=== PATIENT | female | born 1995 | race Caucasian/White ===

== ENCOUNTER 2017-01-02 06:59 | Emergency (ER) | payer OTHER ==
[2017-01-02 07:04] VITALS: RESP 18; TEMP 97.9
--- NOTE | 2017-01-02 07:12 | EDPHY ---
H & P HPI/ROS: CHIEF COMPLAINT: Right shoulder dislocation. HISTORY OF PRESENT ILLNESS: The patient is a 21-year-old female with a history of multiple right shoulder dislocations who presents with right shoulder dislocation. This happened this morning when she jumped upwards to reach a volleyball. Immediate onset of severe right shoulder pain and inability to move arm. She reports this feels the same as her other dislocations. She denies numbness or weakness in her arm. She has no other complaints at this time. REVIEW OF SYSTEMS: A complete 10-point review of systems was performed and is negative except for those items mentioned in the HPI. Past Medical/Surgical History: right shoulder dislocation Social History: [employer] Student. Smoking Status: Never smoked Physical Exam: General Appearance: Alert,appears in pain Eyes: Pupils equal and round, no conjunctival pallor ENT, Mouth: Mucous membranes moist Neck: Normal inspection Respiratory: Lungs are clear to auscultation Cardiovascular: Regular rate and rhythm Gastrointestinal: Abdomen is soft and non-tender Neurological: A&O, nonfocal exam Skin: Warm and dry Vascular: 2+ radial pulse Extremities: right shoulder held in abduction and internal rotation, AC stepoff , anterior shoulder fullness Psychiatric: Mood and affect normal Constitutional: Initial Vital Signs Temperature (C) 36.6 C 01/02/17 07:02 Heart Rate 91 01/02/17 07:02 Respiratory Rate 18 01/02/17 07:02 Blood Pressure 113/85 H 01/02/17 07:02 O2 Sat (%) 97 01/02/17 07:02 O2 Delivery Mode Room Air Allergies/Adverse Reactions: No Known Allergies Allergy (Verified 01/02/17 07:01) Home Medications: Medication Instructions Recorded Nexplanon 01/02/17 Medical Decision Making - Diagnostics Imaging: Xray independently reviewed by me: right shoulder dislocation Repeat Xray: successful reduction ED Course/Re-evaluation: 21-year-old female with multiple right shoulder dislocations presents with right shoulder pain. A shoulder x-ray was ordered and taken when the patient entered the emergency department. I viewed this on the portable screen. It showed definite dislocation. This has happened to this patient multiple times before to her right shoulder. She has severe pain with small movements of her arm. She is neurovascularly intact distally. At her request, I initially tried scapular manipulation but she was unable to tolerate this procedure. I offered sedation but she declined as she has class later today. We placed her prone and dangled her right arm with weights to the wrist. 0743: Shoulder still not reducible. An IV has been established. 100mcg IV Fentanyl administered for pain. 0755: Procedure: Reduction of dislocated shoulder. Time-out completed immediately before the procedure. Neurovascular exam intact pre-procedure. Given 100mcg IV Fentanyl for pain. The right shoulder was reduced using traction-countertraction. Reassessed post-procedure. Neurovascular status intact- normal median, radial, ulnar and axillary nerve motor and sensory exam. Exam indicated reduction. Confirmed reduction on X-ray. Arm sling applied. The procedure was performed by myself. She tolerated the procedure well. Post-procedure--pt is alert and comfortable. She will be discharged with orthopedics follow up and Ibuprofen pain instructions. She is comfortable with this plan. I viewed the patient's post-reduction shoulder x-ray on the PACS system. My interpretation: adequate reduction. Please see Imaging section for radiologist reports. Differential Diagnosis: The differential diagnosis includes but is not limited to: shoulder sprain, shoulder strain, rotator cuff injury, scapular fracture, clavicle fracture, humerus fracture. Departure - Departure Disposition: Home, Routine, Self-Care Clinical Impression: Recurrent dislocation, right shoulder Condition: Good Instructions: Shoulder Dislocation (ED) Additional Instructions: Follow up with your own orthopedist or Dr. Alejandra, orthopedics (on-call orthopedic surgeon) this week for reevaluation. Wear your sling until you have followed up with orthopedics. Take 600mg Ibuprofen every 6-8 hours as needed for pain. Return to the emergency department if you experience any serious worsening of condition. Referrals: Cruz Alejandra MD [Medical Doctor] - As per Instructions Report Scribed for: Khushbu Garcia Report Scribed by: Michael Viera Date of Report: 01/02/17 Time of Report: 07:11
[2017-01-02] MEDS ORDERED: fentaNYL 100 MCG/2 ML INJ IVP ONE (07:25)
[2017-01-02] MEDS ORDERED: fentaNYL 100 MCG/2 ML INJ ONE ×2 (07:45→07:50)
[2017-01-02 08:26] VITALS: BP 111/69; PULSE 65; O2SAT 98
== END 2017-01-02 08:26 | disposition home or self-care (01) ==
PROC: 0RSJXZZ Reposition Right Shoulder Joint, External Approach (ICD-10-PCS; principal; 2017-01-02)
DX: M24.411 Recurrent dislocation, right shoulder (principal); X58.XXXA Exposure to other specified factors, initial encounter; Y99.8 Other external cause status; Y93.68 Activity, volleyball (beach) (court)
CPT/HCPCS: 96374; A4565; J3010